=== PATIENT | male | born 1965 | race Caucasian/White ===

== ENCOUNTER 2018-08-25 09:44 | Inpatient (IN) ==
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
--- NOTE | 2018-08-25 10:33 | CT ---
EXAM DATE: 08/25/2018 10:28 AM EST AGE/SEX: 89 years / Male INDICATIONS: Altered mental status. CLINICAL DATA: This is the patient's initial encounter. Patient reports that signs and symptoms have been present for 1 day and indicates a pain score of Nonresponsive. MEDICAL/SURGICAL HISTORY: Non-responsive. Non-responsive. RADIATION DOSE: 56.35 CTDI (mGy) COMPARISON: No prior exams available for comparison. TECHNIQUE: CT of the head without contrast. Using automated exposure control and adjustment of the mA and/or kV according to patient size, radiation dose was kept as low as reasonably achievable to ob tain optimal diagnostic quality images. DICOM format image data is available electronically for revi ew and comparison. FINDINGS: There is no evidence for intracranial hemorrhage, mass effect, mass lesions, edema, or extra-axial fl uid collections. The visualized bony structures appear intact. The ventricles are normal size for t he patient's age. There are no signs of acute infarction for technique. CONCLUSION: Unremarkable study. Electronically signed by: Moriah Rivas MD Board Certified Radiologist 08/25/2018 10:31 AM EST
[2018-08-25] MEDS: Sod Chloride 0.9% Inj 1,000 ML IV.SIG SCH ×2 (10:41→15:08)
[2018-08-25 10:44] LABS: Baso # (Auto) 0.1 th/mm3 (0.0-0.2); Baso % (Auto) 0.5 % (0.0-2.0); Eos # (Auto) 0.1 th/mm3 (0.0-0.4); Eos % (Auto) 0.6 % (0.0-4.0); Hematocrit 43.2 % (39.0-51.0); Hemoglobin 15.4 gm/dL (13.0-17.0); Lymph # (Auto) 1.7 th/mm3 (1.0-4.8); Lymph % (Auto) 9.7 % (9.0-44.0); Mean Corpuscular HGB Conc 35.7 % (32.0-36.0); Mean Corpuscular Hemoglobin 34.6 pg (27.0-34.0); Mean Corpuscular Volume 96.8 fL (80.0-100.0); Mean Platelet Volume 8.4 fL (7.0-11.0); Mono # (Auto) 0.9 th/mm3 (0.0-0.9); Neut # (Auto) 15.2 th/mm3 (1.8-7.7); Neut % (Auto) 84.2 % (16.0-70.0); Platelet Count 242 th/mm3 (150-450); Red Blood Count 4.46 mil/mm3 (4.50-5.90); Red Cell Distribution Width 13.6 % (11.6-17.2)
[2018-08-25 10:53] LABS: Alanine Aminotransferase 44 U/L (12-78); Albumin 4.3 g/dL (3.4-5.0); Anion Gap 5 meq/L (5-15); Aspartate Aminotransferase 34 U/L (15-37); Blood Urea Nitrogen 8 mg/dL (7-18); Calcium 8.7 mg/dL (8.5-10.1); Carbon Dioxide 31.8 meq/L (21.0-32.0); Chloride 104 meq/L (98-107); Glomerular Filtration Rate 73 mL/min (>89); Glucose,Random 78 mg/dL (74-106); Magnesium 2.2 mg/dL (1.5-2.5); Potassium 3.8 meq/L (3.5-5.1); Sodium 141 meq/L (136-145)
[2018-08-25 10:56] LABS: Alkaline Phosphatase 52 U/L (45-117); Total Protein 7.6 g/dL (6.4-8.2)
[2018-08-25 11:04] LABS: Alcohol 18 mg/dL (0-5)
[2018-08-25 11:52] LABS: Bilirubin,Urine Negative (Negative); Clarity,Urine Clear (Clear); Color,Urine Yellow (Yellw/Straw); Glucose,Urine (UA) Negative (Negative); Hyaline Casts,Urine 1 /lpf (0-3); Leukocyte Esterase,Urine Negative (Negative); Mucus,Urine Few /lpf (Occasional); Nitrite,Urine Negative (Negative); Specific Gravity,Urine 1.009 (1.002-1.035)
[2018-08-25 12:23] LABS: Amphetamine Screen,Urine Neg (Neg); Barbiturate Screen,Urine Neg (Neg); Cannabinoid Screen,Urine Pos (Neg); Cocaine Screen,Urine Pos (Neg)
[2018-08-25 12:36] LABS: Opiate Screen,Urine Neg (Neg)
--- NOTE | 2018-08-25 14:53 | ECG ---
Date Performed: 08/25/2018 Time Performed: 10:15:40 PTAGE: 89 years EKG: Sinus rhythm POSSIBLE LEFT ATRIAL ENLARGEMENT BORDERLINE ECG NO PREVIOUS TRACING DOCTOR: Issa Cash Interpretating Date/Time 08/25/2018 14:51:34
[2018-08-25] MEDS ORDERED: Haloperidol Inj 5 MG/ML Ampul IM ONE (19:50)
[2018-08-26] MEDS ORDERED: Aluminum/Magnesium/Simethacone Susp 30 ML UDC PO PRN (13:25)
[2018-08-26] MEDS ORDERED: LORazepam 1 MG Tablet PO PRN (13:25)
[2018-08-26] MEDS ORDERED: Haloperidol Inj 5 MG/ML Ampul IV.PUSH PRN (13:25)
[2018-08-26] MEDS ORDERED: Bisacodyl 10 MG Supp RECTAL PRN (13:25)
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
[2018-08-26] MEDS ORDERED: Haloperidol 5 MG Tablet PO SCH (14:15)
[2018-08-26] MEDS: Haloperidol 5 MG Tablet PO SCH (16:16)
[2018-08-26] MEDS: Senna/Docusate Sodium 8.6/50 MG Tablet PO SCH (21:07)
[2018-08-27] MEDS: Haloperidol 5 MG Tablet PO SCH (04:57)
[2018-08-27 06:57] LABS: Calcium 8.9 mg/dL (8.5-10.1); Carbon Dioxide 26.1 meq/L (21.0-32.0); Potassium 4.1 meq/L (3.5-5.1)
[2018-08-27 07:00] LABS: Chol/HDL Ratio 2.03 Ratio; HDL Cholesterol 60.4 mg/dL (40.0-60.0)
[2018-08-27] MEDS: Senna/Docusate Sodium 8.6/50 MG Tablet PO SCH ×2 (08:38→20:45)
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
[2018-08-27 16:13] LABS: Hemoglobin A1c 5.1 % (4.3-6.0)
[2018-08-27] MEDS: oxyCODONE/Acetaminophen 10/325 Tablet PO PRN (17:04)
[2018-08-28] MEDS: oxyCODONE/Acetaminophen 10/325 Tablet PO PRN ×3 (05:36→22:45)
[2018-08-28] MEDS: Senna/Docusate Sodium 8.6/50 MG Tablet PO SCH ×2 (08:04→20:45)
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
[2018-08-29 06:18] VITALS: BP 121/70; PULSE 81; RESP 16; TEMP 97.4; O2SAT 97
[2018-08-29] MEDS: oxyCODONE/Acetaminophen 10/325 Tablet PO PRN (08:04)
[2018-08-29] MEDS: Senna/Docusate Sodium 8.6/50 MG Tablet PO SCH (08:05)
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
== END 2018-08-29 11:15 | disposition home or self-care (01) | DRG 885 ==
LOC: NEPD 09:44 → H270 08-26 14:15 → EDBD 08-26 14:19
PROVIDERS: ADMIT Psychiatry & Neurology Psychiatry; ATTEND Psychiatry & Neurology Psychiatry
CPT/HCPCS: 70450; 80048; 80053; 80061; 80307; 81001; 83036; 83735; 84484; 85025; 90772; 90782; 93005; 96372; 99284; J1200; J1630; J2060; J3410; J7030; Q0163